=== PATIENT | female | born 1960 | race Caucasian/White ===

== ENCOUNTER → 2018-09-26 | Outpatient (CLI) | payer BC, OTHER ==
[~2018-09-26] MED LIST: CYCL10 PO; ESTMEDA; HYDACE5 PO; IBUP800 PO
== END | disposition home or self-care (01) ==
LOC: LAB 16:43 → LAB SHORT 16:43
DX: N39.0 Urinary tract infection, site not specified (principal)
CPT/HCPCS: 87077; 87086; 87186

== ENCOUNTER → 2019-07-27 | Outpatient (CLI) | payer BC, OTHER | END | disposition home or self-care (01) | LOC: LAB 14:00 → LAB SHORT 14:00 | DX: R31.9 Hematuria, unspecified (principal) | CPT/HCPCS: 87086 ==

== ENCOUNTER 2020-05-28 09:48 | Day surgery (SDC) | payer BC, OTHER ==
[~2020-05-28] VITALS: Ht 172.7 cm; Wt 71.2 kg
[~2020-05-28 09:48] MED LIST changes: +METF500C
[2020-05-28] MEDS ORDERED: AMPDEX10 (10:17)
[2020-05-28] MEDS ORDERED: LIPITOR10 MG PO (10:18)
[2020-05-28] MEDS ORDERED: BYDUREON B2 MG/0.81 SQ (10:18)
[2020-05-28] MEDS ORDERED: TOUJEO SOL300 UNIT/2 SQ (10:18)
[2020-05-28] MEDS ORDERED: TAMSULOSIN HCL0.4 M1 PO (10:18)
[2020-05-28] MEDS ORDERED: BENAZEPRIL-HCT1 EACH PO (10:23)
[2020-05-28] MEDS ORDERED: DIAZEPAM10 MG VAG (10:23)
--- NOTE | 2020-05-28 13:09 | NUR ---
05/28/20 1309 Bianca Charlton 1 MG EPI ADDED TO FIRST OF THE FIRST 3 BAGS OF LR FOR IRRIGATION PER ORDER.
== END 2020-05-28 14:45 | disposition home or self-care (01) ==
LOC: ORSCSDS 09:48
PROVIDERS: Orthopaedic Surgery
PROC: 0LS34ZZ Reposition Right Upper Arm Tendon, Percutaneous Endoscopic Approach (ICD-10-PCS; principal; 2020-05-28 11:00)
PROC: 0LQ14ZZ Repair Right Shoulder Tendon, Percutaneous Endoscopic Approach (ICD-10-PCS; principal; 2020-05-28 11:00)
PROC: 0RNJ4ZZ Release Right Shoulder Joint, Percutaneous Endoscopic Approach (ICD-10-PCS; principal; 2020-05-28 11:00)
DX: M75.111 Incomplete rotator cuff tear or rupture of right shoulder, not specified as traumatic (principal); M75.21 Bicipital tendinitis, right shoulder; M75.41 Impingement syndrome of right shoulder; I10 Essential (primary) hypertension; E11.9 Type 2 diabetes mellitus without complications; Z79.4 Long term (current) use of insulin; Z79.899 Other long term (current) drug therapy
CPT/HCPCS: 82947; C1713; J0171; J0690; J1100; J1885; J2250; J2405; J2704; J2710; J2795; J3010; J7120

== ENCOUNTER → 2020-12-24 | Outpatient (CLI) | payer BC, OTHER ==
[~2020-12-24] MED LIST changes: +AMPDEX10; +BENAZEPRIL-HCT1 EACH PO; +BYDUREON B2 MG/0.81 SQ; +DIAZEPAM10 MG VAG; +LIPITOR10 MG PO; +TAMSULOSIN HCL0.4 M1 PO; +TOUJEO SOL300 UNIT/2 SQ
== END ==
LOC: LAB SHORT 12:01 → LAB 12:01
DX: N30.00 Acute cystitis without hematuria (principal)
CPT/HCPCS: 87077; 87086; 87186

== ENCOUNTER → 2022-02-26 | Outpatient (CLI) | payer OTHER | END | disposition home or self-care (01) | LOC: LAB SHORT 11:05 → LAB 11:05 | DX: N30.00 Acute cystitis without hematuria (principal) | CPT/HCPCS: 87077; 87086; 87186 ==